=== PATIENT | female | born 1980 | race American Indian/Alaskan Native ===

== ENCOUNTER 2017-01-19 16:20 | Emergency (ER) | payer MEDICAID ==
[2017-01-19 18:15] LABS: Basophils % (Auto) 0.5 % (0.0-1.8); Eosinophils % (Auto) 0.8 % (0.0-4.3); Hematocrit 37.9 % (30.3-42.9); Hemoglobin 12.3 gm/dl (10.1-14.3); Mean Corpuscular HGB Conc 33 % (30-34); Mean Corpuscular Hemoglobin 31 pg (28-32); Mean Corpuscular Volume 96 fl (79-97); Platelet Count 331 K/mm3 (140-440); Red Blood Count 3.97 M/mm3 (3.65-5.03); White Blood Count 5.7 K/mm3 (4.5-11.0)
[2017-01-19 18:33] LABS: BUN/Creatinine Ratio 11.66; Blood Urea Nitrogen 7 mg/dL (7-17); Calcium 8.7 mg/dL (8.4-10.2); Carbon Dioxide 25 mmol/L (22-30); Glucose 95 mg/dL (65-100)
[2017-01-19 18:34] LABS: Anion Gap 14 mmol/L; Chloride 104.5 mmol/L (98-107); Potassium 3.8 mmol/L (3.6-5.0); Sodium 140 mmol/L (137-145)
[2017-01-19 20:52] VITALS: BP 113/62
[2017-01-19] MEDS ORDERED: TYLENOL PO ONE (21:39)
--- NOTE | 2017-01-19 21:44 | Emergency Department Report ---
HPI - General Chief Complaint: Chest Pain Time Seen by Provider: 01/19/17 21:27 - HPI HPI: Room 5 The patient is a 36-year-old female presenting with a chief complaint of back pain, headache and right hip pain. The patient states she has had intermittent headaches the past several months since "the pollen has come." The patient states the pain migrates to different locations in her head. The patient states that lower back pain and right hip pain since yesterday. Patient denies any preceding trauma. Patient complains of Story at the ASIS with movement. The patient states yesterday at work she developed chest tightness reportable 6.5 hours which she attributed to her anxiety. Patient states his symptoms resolved and never returned. Patient denies nausea/vomiting or shortness of breath. The patient denies any history of cough, fever or rhinorrhea. Patient currently gives her pain a score of 4-6/10. Patient states she is currently on her cycle Location: [see above] Duration: [see above] Quality: Pain Severity: [see above] Modifying factors: [see above] Context: [see above] Mode of transportation: [not driving] ED Past Medical Hx - Past Medical History Previous Medical History?: Yes Hx Hypertension: Yes (Pt reports hypertension after that has now resolved) Hx Diabetes: Yes (gestational) Hx GERD: Yes Hx Psychiatric Treatment: Yes (ANXIETY ATTACKS and depression) Additional medical history: Vaginal delivery 05-12-2016 - Surgical History Past Surgical History?: No - Family History Family history: no significant - Social History Smoking Status: Current Every Day Smoker (1/4 pack per day) Substance Use Type: None (patient denies illicit drug use) - Medications Home Medications: Home Medications Medication Instructions Recorded Confirmed Last Taken Type Nitrofurantoin [place]/M-Cryst 100 mg PO Q12HR #14 capsule 10/27/16 01/19/17 Unknown Rx [Macrobid CAP] Pnv Cmb#21/Iron/Folic Acid 1 each PO DAILY #60 tablet 10/27/16 01/19/17 Unknown Rx [ Complete Caplet] traMADol [Ultram] 50 mg PO Q6HR PRN #14 tablet 01/19/17 Unknown Rx ED Review of Systems ROS: Stated complaint: LOWER BACK/RT SIDE PAIN/HEADACHE Other details as noted in HPI Comment: All other systems reviewed and negative Constitutional: denies: chills, fever Eyes: denies: eye pain, eye discharge, vision change ENT: denies: ear pain, throat pain Respiratory: denies: cough, shortness of breath, wheezing Cardiovascular: denies: palpitations Endocrine: no symptoms reported Gastrointestinal: denies: abdominal pain, nausea, diarrhea Genitourinary: denies: urgency, dysuria, discharge Musculoskeletal: back pain Skin: denies: rash, lesions Neurological: headache Psychiatric: denies: anxiety, depression Hematological/Lymphatic: denies: easy bleeding, easy bruising Physical Exam - Physical Exam Vital Signs: Vital Signs 01/19/17 01/19/17 01/19/17 17:44 20:51 20:54 Temperature 98.2 F 98.1 F Pulse Rate 67 63 Respiratory 20 17 Rate Blood Pressure 108/72 Blood Pressure 113/62 [Left] O2 Sat by Pulse 100 100 Oximetry Physical Exam: GENERAL: The patient is well-developed well-nourished female lying on stretcher not appearing to be in acute distress. [] HEENT: Normocephalic. Atraumatic. Extraocular motions are intact. Patient has moist mucous membranes. NECK: Supple. No meningitic signs are noted. A chem midline CHEST/LUNGS: Clear to auscultation. There is no respiratory distress noted. HEART/CARDIOVASCULAR: Regular. There is no tachycardia. There is no gallop rub or murmur. ABDOMEN: Abdomen is soft, nontender. Patient has normal bowel sounds. There is no abdominal distention. SKIN: There is no rash. There is no edema. There is no diaphoresis. NEURO: The patient is awake, alert, and oriented. The patient is cooperative. The patient has no focal neurologic deficits. The patient has normal speech. 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 There is no evidence of acute injury. ED Course Vital Signs 01/19/17 01/19/17 01/19/17 17:44 20:51 20:54 Temperature 98.2 F 98.1 F Pulse Rate 67 63 Respiratory 20 17 Rate Blood Pressure 108/72 Blood Pressure 113/62 [Left] O2 Sat by Pulse 100 100 Oximetry ED Medical Decision Making - Lab Data Result diagrams: 01/19/17 17:58 01/19/17 17:58 Laboratory Tests 01/19/17 01/19/17 17:58 17:58 WBC 5.7 RBC 3.97 Hgb 12.3 Hct 37.9 MCV 96 MCH 31 MCHC 33 RDW 15.0 Plt Count 331 Lymph % (Auto) 46.1 H [place] % (Auto) 4.5 Eos % (Auto) 0.8 Baso % (Auto) 0.5 Lymph # 2.6 [place] # 0.3 Eos # 0.0 Baso # 0.0 Seg Neutrophils % 48.1 Seg Neutrophils # 2.7 Sodium 140 Potassium 3.8 Chloride 104.5 Carbon Dioxide 25 Anion Gap 14 BUN 7 Creatinine 0.6 L Estimated GFR > 60 BUN/Creatinine Ratio 11.66 Glucose 95 Calcium 8.7 Troponin T < 0.010 - EKG Data -: EKG Interpreted by Me EKG shows normal: sinus rhythm Rate: normal - EKG Data When compared to previous EKG there are: no significant change Interpretation: unchanged when compared t (12/16/2014) - Radiology Data Radiology results: report reviewed (CT head), image reviewed (CT head, right hip x-ray) interpreted by me: Right hip x-ray-no acute fractures, no dislocation CT head (read by radiologist)-normal examination - Differential Diagnosis sinusitis, ICH, migraines, pyelonephritis, lumbar radiculopathy Critical care attestation.: If time is entered above; I have spent that time in minutes in the direct care of this critically ill patient, excluding procedure time. ED Disposition Clinical Impression: Headache, Right hip pain Disposition: DISCHARGED TO HOME OR SELFCARE Is pt being admited?: No Does the pt Need Aspirin: No Condition: Stable Instructions: Arthralgia (ED), Acute Headache (ED) Additional Instructions: Return to the emergency department immediately should you develop worsening symptoms, fever, inability to tolerate food or liquid or any other concerns. Prescriptions: traMADol [Ultram] 50 mg PO Q6HR PRN #14 tablet PRN Reason: Pain Referrals: PRIMARY CARE, [Primary Care Provider] - 3-5 Days GLENDY MONGE MD [Staff Physician] - 3-5 Days (Dr. Monge is an orthopedic surgeon. Please follow up with him for further evaluation) Time of Disposition: 23:34
[2017-01-19 22:27] LABS: Bilirubin,Urine NEG (Negative); Blood,Urine LG (Negative); Ketones,Urine NEG (Negative); Leukocyte Esterase,Urine NEG (Negative); Mucus,Urine 3+ /HPF; Nitrite,Urine NEG (Negative)
[2017-01-19 22:29] LABS: RBC,Urine > 182.0 /HPF (0.0-6.0)
--- NOTE | 2017-01-19 23:16 | Cat Scan Report ---
FINAL REPORT PROCEDURE: CT HEAD/BRAIN WO CON TECHNIQUE: Computerized tomography of the head was performed without contrast material. HISTORY: headache COMPARISON: No prior studies are available for comparison. FINDINGS: Skull and scalp: Normal. Paranasal sinuses: Normal. Ventricles and subarachnoid spaces: Normal. Cerebrum: No evidence of hemorrhage, acute infarction or mass . Cerebellum and brainstem: No evidence of hemorrhage, acute infarction or mass. Vasculature: Normal. Comments: None. IMPRESSION: Normal Examination
--- NOTE | 2017-01-20 07:18 | XRay Report ---
RIGHT HIP, 2 views: History: Right hip pain. The bony architecture is intact without evidence of fracture or dislocation. No significant soft tissue abnormality is seen. IMPRESSION: Normal right hip.
== END 2017-01-19 23:50 | disposition home or self-care (01) ==
LOC: ED 16:20
DX: M25.551 Pain in right hip (principal); R51 Headache; I10 Essential (primary) hypertension; E11.9 Type 2 diabetes mellitus without complications; K21.9 Gastro-esophageal reflux disease without esophagitis; F17.200 Nicotine dependence, unspecified, uncomplicated
CPT/HCPCS: 36415; 70450; 80048; 81001; 81025; 84484; 85025; 93005; 93010; 99285

== ENCOUNTER 2017-02-06 17:22 | Emergency (ER) | payer MEDICAID ==
[2017-02-06] MEDS ORDERED: TORADOL IM ONE (17:46)
--- NOTE | 2017-02-06 18:35 | Emergency Department Report ---
Entered by TERRIE LANGE, acting as scribe for MAC ROBLES PA. HPI - General Chief Complaint: Extremity Injury, Lower Time Seen by Provider: 02/06/17 17:37 - HPI HPI: 37 y/o female with a PMHx of HTN after presents to the ED c/o right hip pain that began 2 weeks ago, worsening today. Pain is aggravated with walking, movement, palpation, and sitting upright. Denies numbness and tingling. Notes she was seen in this ED on 01/19/2017 c/o similar symptoms. Reports X-rays was taken of her right hip and leg with normal findings and she was prescribed Tramadol and Tylenol. She took medications with no relief. NKDA. ED Past Medical Hx - Past Medical History Previous Medical History?: Yes Hx Hypertension: Yes (Pt reports hypertension after that has now resolved) Hx Congestive Heart Failure: No Hx Diabetes: Yes (gestational) Hx Deep Vein Thrombosis: No Hx GERD: Yes Hx Renal Disease: No Hx Sickle Cell Disease: No Hx Seizures: No Hx Psychiatric Treatment: Yes (ANXIETY ATTACKS and depression) Hx Asthma: No Hx COPD: No Hx HIV: No Additional medical history: Vaginal delivery 05-12-2016, Right hip and back pain - Surgical History Past Surgical History?: No - Social History Smoking Status: Current Every Day Smoker Substance Use Type: Prescribed - Medications Home Medications: Home Medications Medication Instructions Recorded Confirmed Last Taken Type Nitrofurantoin [place]/M-Cryst 100 mg PO Q12HR #14 capsule 10/27/16 01/19/17 Unknown Rx [Macrobid CAP] Pnv Cmb#21/Iron/Folic Acid 1 each PO DAILY #60 tablet 10/27/16 01/19/17 Unknown Rx [ Complete Caplet] traMADol [Ultram] 50 mg PO Q6HR PRN #14 tablet 01/19/17 Unknown Rx Acetaminophen/Codeine [Tylenol 1 tab PO Q4HR PRN #14 tablet 02/06/17 Unknown Rx /Codeine # 3 tab] ED Review of Systems ROS: Stated complaint: LEG AND HIP PAIN Other details as noted in HPI Comment: All other systems reviewed and negative Constitutional: no symptoms reported. denies: chills, fever Eyes: denies: eye pain, eye discharge, vision change ENT: denies: ear pain, throat pain Respiratory: denies: cough, shortness of breath, wheezing Cardiovascular: denies: chest pain, palpitations Endocrine: no symptoms reported Gastrointestinal: denies: abdominal pain, nausea, diarrhea Genitourinary: denies: urgency, dysuria, discharge Musculoskeletal: arthralgia (right hip pain). denies: back pain, joint swelling Skin: denies: rash, lesions Neurological: denies: headache, weakness, numbness, paresthesias, other ( tingling) Psychiatric: denies: anxiety, depression Hematological/Lymphatic: denies: easy bleeding, easy bruising Physical Exam - Physical Exam Vital Signs: Vital Signs 02/06/17 17:26 Temperature 98.2 F Pulse Rate 82 Respiratory 20 Rate O2 Sat by Pulse 100 Oximetry General: GENERAL: Patient is alert and oriented x 3. No apparent distress, normal gait, atraumatic. Physical Exam: HEAD: Head is normocephalic and atraumatic. EYES: Extraocular movements are intact. Pupils are equal, round, and reactive to light and accommodation. LUNGS: Symmetrical with respiration. No wheezing, rales or crackles, CTAB. HEART: Regular rate and rhythm with normal S1/S2 present. No murmurs, rubs, or gallops. ABDOMEN: Soft, nondistended. Nontender to palpation on all quadrants. EXTREMITIES/MUSCULOSKELETAL: No cyanosis, clubbing, rash, lesions or edema. Full ROM bilaterally. UE/LE Pulses 2+ bilaterally. LE and UE 5+ strength bilaterally. Right thigh tenderness present. SKIN: Warm and dry. No lesions, ulceration or induration present ED Course Vital Signs 02/06/17 17:26 Temperature 98.2 F Pulse Rate 82 Respiratory 20 Rate O2 Sat by Pulse 100 Oximetry - Reevaluation(s) Reevaluation #1: 02/06/17 18:35 Patient reports that she feels much better. ED Medical Decision Making - Medical Decision Making Patient was evaluated in fast track area of ED by this provider. Patient presented with right hip pain for 2 weeks. In the ED, patient will be given a shot of Toradol. Patient is in no acute distress at this time. She will be discharged home with prescription for Motrin. Patient instructed to take Omeprazole before taking the Motrin. Patient instructed to follow up with PCP if symptoms persist. Patient verbalized understanding. She is encouraged to return to the emergency room for any worsening symptoms. Critical care attestation.: If time is entered above; I have spent that time in minutes in the direct care of this critically ill patient, excluding procedure time. ED Disposition Clinical Impression: Right hip pain Disposition: DISCHARGED TO HOME OR SELFCARE Is pt being admited?: No Does the pt Need Aspirin: No Condition: Stable Prescriptions: Acetaminophen/Codeine [Tylenol /Codeine # 3 tab] 1 tab PO Q4HR PRN #14 tablet PRN Reason: Pain Referrals: LACI GRIMES MD [Referring] - 3-5 Days Forms: Work/School Release Form(ED) This documentation as recorded by the ANISA sierra JASMINE,accurately reflects the service I personally performed and the decisions made by me, MAC ROBLES PA.
[2017-02-06 18:42] VITALS: BP 117/70
== END 2017-02-06 18:55 | disposition home or self-care (01) ==
LOC: ED 17:22
DX: M25.551 Pain in right hip (principal); K21.9 Gastro-esophageal reflux disease without esophagitis; F41.9 Anxiety disorder, unspecified; I10 Essential (primary) hypertension; F17.200 Nicotine dependence, unspecified, uncomplicated
CPT/HCPCS: 96372; 99282; J1885